=== PATIENT | female | born 1980 | race African-American/Black ===

== ENCOUNTER 2020-09-18 17:34 | Emergency (ER) | payer MEDICAID ==
[~2020-09-18] VITALS: Ht 172.7 cm; Wt 88.9 kg
[2020-09-18 17:37] VITALS: BP 184/130
[2020-09-18] MEDS ORDERED: CLONIDINE HYDROCHLORIDE 0.1 MG TAB PO ONE (17:50)
[2020-09-18] MEDS ORDERED: KETOROLAC 60 MG/2 ML VIAL IM ONE (17:50)
[2020-09-18] MEDS ORDERED: HYDR-4004 PO (18:48)
[2020-09-18] MEDS ORDERED: ACET-9527 PO (18:48)
[2020-09-18] MEDS ORDERED: IBUP-2213 PO (18:48)
[2020-09-18 19:03] VITALS: BP 184/130
== END 2020-09-18 19:04 | disposition home or self-care (01) ==
LOC: MED 17:34
DX: M54.5 Low back pain (principal); I10 Essential (primary) hypertension; Z79.899 Other long term (current) drug therapy; Z88.8 Allergy status to other drugs, medicaments and biological substances; Z90.710 Acquired absence of both cervix and uterus; Z98.890 Other specified postprocedural states
CPT/HCPCS: 72100; 81002; 81025; 96372; 99283; J1885